=== PATIENT | female | born 1990 | race Caucasian/White ===

== ENCOUNTER 2016-10-24 21:40 | Emergency (ER) | payer OTHER ==
--- NOTE | ~2016-10-24 | CR90 ---
[facility]. [facility] RADIOLOGY TEXT RESULTS PATIENT: GRICEL KILGORE LOCATION: SED : 86 UNIT #: [id number] AGE: [address]: Kashif Velez MD SEX: F ORDER DR: [id number] [place] [id number] E MR#: [id number] Acc #: [id number] NAME: GRICEL KILGORE : 1990 SEX: F STUDY DATE/TIME: 10/24/2016 22:48 UNIT: SED ROOM: STUDY DESCRIPTION: CR Elbow 2 View Lt Attending Physician: Kashif Velez M.D. Ordering Physician: Kashif Velez M.D. Primary Care Physician: Star Hopper M.D. MEDICAL IMAGING REPORT This report is preliminary unless electronic signature is present. EXAM 2 views of the left elbow. DATE 10/24/2016 at 2248 HISTORY Left elbow pain, swelling, redness and warmth. Possible abscess. Injecting heroin. Symptoms began yesterday. COMPARISON None FINDINGS No fracture. No dislocation. No significant osteoarthritic change. No subcutaneous air. No retained radiopaque foreign body is seen in the soft tissues. IMPRESSION Normal 2 views of the left elbow. No retained radiopaque foreign body is seen. Dictated by... Stacey Souza M.D. THIS IS AN ELECTRONICALLY VERIFIED REPORT Stacey Souza M.D. at 10/26/2016 1:51 AM [facility]/oc TD: 10/25/2016 10:46 [facility]. [facility] RADIOLOGY TEXT RESULTS PATIENT: GRICEL KILGORE LOCATION: SED : [birth year] UNIT #: [id number] AGE: [address]: Kashif Velez MD SEX: F ORDER DR: JOB #: [id number] MEDICAL IMAGING REPORT
[~2016-10-24 21:40] MED LIST: ALBUTEROL17 GM; AMOXICILLIN PO; AMOXICILLIN500 M1 PO; AMOXICILLIN875 MG PO; APIDRA (NF100 UNITS/; APIDRA100 U/ML SQ; APRIDA; AUGMENTIN875 MG PO; AURALGAN OTIC S10 ML OT; BACTRIM DS TABL1 TA1 PO; BACTRIM DS TABL1 TA2 PO; BACTRIM DS TABL1 TAB PO; CELEXA PO; CHANTIX1 MG BC; CLINDAMYCIN HC300 MG PO; DIAZEPAM PO; DIFLUCAN PO; FISH OIL SOFTGE1 CA1 PO; FISH OIL300 MG; FISH OIL500 MG; FLAGYL PO; GLUCOPHAGE500 MG PO; HUMALOG100 UNIT/2; HUMULIN 70/30 V10 ML; IBUPROFEN PO; IBUPROFEN800 MG PO; IRON1 TAB PO; IRON325 ( 65 ) PO; KEFLEX PO; LIPITOR; LOVASTATIN10 MG PO; MACRODANTIN PO; METFORMIN HCL500 M1 PO; MEVACOR; MEVACOR10 MG PO; MOTRIN600 M2 PO; NEURONTIN300 MG PO; PAXIL PO; PEPCID PO; PHENERGAN PO; PHENERGAN25 MG PO; PREDNISONE PO; PRENATAL1 TA1 PO; PYRIDIUM100 MG PO; ROBAXIN PO; TESSALON200 MG PO; TYLENOL #3 PO; VICODIN 5/1 TAB 5/50 PO; VICODIN 5/500 T1 TAB PO; [UNRECOGNIZED DRUG - OTHER]; [UNRECOGNIZED DRUG - OTHER]; [UNRECOGNIZED DRUG - OTHER] PO; [UNRECOGNIZED DRUG - OTHER] PO; [UNRECOGNIZED DRUG - SUPPLY]
[2016-10-24 22:07] LABS: BASOPHIL# 0.1 X10e3 (0-0.3); BASOPHIL% 0.8 % (0-2.5); EOSINOPHIL% 0.3 % (0.0-7.0); HEMATOCRIT 39.5 % (35.0-45.0); HEMOGLOBIN 13.2 gm/dL (12.0-16.0); LYMPHOCYTE# 2.5 X10e3 (1.0-3.5); LYMPHOCYTE% 17.9 % (17.0-45.0); MEAN CORPUSCULAR HEMOGLOBIN 28.8 PG (28-34); MEAN CORPUSCULAR HGB CONC 33.6 g/dL (30-36); MEAN PLATELET VOLUME 9.6 FL (6.5-11.5); MONOCYTE# 0.9 X10e3 (0-1.0); MONOCYTE% 6.5 % (3.0-12.0); NEUTROPHIL# 10.5 X10e3 (1.5-7.1); NEUTROPHIL% 74.5 % (40-75); PLATELET COUNT 194 X10e3 (140-420); RED BLOOD COUNT 4.59 X10e (3.90-5.30); RED CELL DISTRIBUTION WIDTH 12.5 % (11.0-15.5); WHITE BLOOD COUNT 14.1 X10e3 (4.0-10.5)
[2016-10-24 22:15] LABS: INR 1.1; PROTHROMBIN TIME (PATIENT) 12.9 SECONDS (9.5-12.4)
[2016-10-24 22:18] LABS: DIFF IND NO
[2016-10-24 22:22] LABS: PARTIAL THROMBOPLASTIN TIME <20.0 SECONDS (25.6-38.1)
[2016-10-24 22:23] LABS: BLOOD UREA NITROGEN 11 mg/dL (9-23); BUN/CREATININE RATIO 15.71; CALCIUM SERUM 9.3 mg/dL (8.4-10.2); CARBON DIOXIDE 27 mmol/L (22-31); CHLORIDE 98 mmol/L (100-111); CREATININE SERUM 0.7 mg/dL (0.6-1.4); GLOM FILT RATE Estimated ABOVE60 mL/min (>60); GLUCOSE FASTING 265 mg/dL (70-110); SODIUM 133 mmol/L (135-145)
[2016-10-24 23:14] LABS: AMPHETAMINE POS (NEG); BARBITURATES NEG (NEG); BENZODIAZEPINES NEG (NEG); COCAINE NEG (NEG); MARIJUANA NEG (NEG); OPIATES POS (NEG); TRICYCLIC ANTIDEPRESSANTS NEG (NEG); U METHADONE POS (NEG)
== END 2016-10-25 02:03 | disposition left against medical advice (07) ==
LOC: SED 21:40
PROVIDERS: Emergency Medicine
DX: L02.414 Cutaneous abscess of left upper limb (principal); L03.114 Cellulitis of left upper limb; E11.9 Type 2 diabetes mellitus without complications; F19.10 Other psychoactive substance abuse, uncomplicated
CPT/HCPCS: 36415; 73070; 80048; 80307; 84703; 85025; 85610; 85730; 96365; 96366; 99285

== ENCOUNTER 2017-03-06 23:35 | Emergency (ER) | payer OTHER ==
[~2017-03-06] VITALS: Ht 167.6 cm; Wt 71.7 kg
[2017-03-06] MEDS ORDERED: FISH OIL 1,0001 EAC3 PO (23:50)
== END 2017-03-07 01:35 | disposition left against medical advice (07) ==
LOC: SED 23:35
DX: L02.413 Cutaneous abscess of right upper limb (principal); L03.113 Cellulitis of right upper limb; F17.210 Nicotine dependence, cigarettes, uncomplicated
CPT/HCPCS: 10060; 87070; 87077; 87186; 87205; 99283